=== PATIENT | male | born 1965 | race African-American/Black ===

== ENCOUNTER 2022-09-14 06:51 | Emergency (ER) | payer OTHER ==
[2022-09-14 07:18] VITALS: BP 165/96; PULSE 78; RESP 18; TEMP 98.2; BMI 29.8
== END 2022-09-14 10:08 | disposition home or self-care (01) ==
LOC: JERFT 06:51 → JER 06:51 → JERFT 10:08
DX: J01.10 Acute frontal sinusitis, unspecified (principal)
CPT/HCPCS: 0241U-QW; 71046-TC-FY; 99284-25